=== PATIENT | female | born 2005 | race Caucasian/White ===

== ENCOUNTER 2024-06-26 10:26 | Outpatient (CLI) | payer OTHER, SELFPAY | END 2024-06-26 10:27 | disposition home or self-care (01) | LOC: NFLDREF 06-30 17:58 | PROVIDERS: PCP Internal Medicine; Referring Provider Internal Medicine; Visit Provider Obstetrics & Gynecology | DX: E28.8 Other ovarian dysfunction (principal) | CPT/HCPCS: 82627; 83498; 84270; 84402; 84403 ==